=== PATIENT | male | born 1970 | race Hispanic/Latino ===

== ENCOUNTER 2020-03-04 17:18 | Emergency (ER) | payer BC ==
[~2020-03-04] VITALS: Ht 165.1 cm; Wt 69.7 kg
[2020-03-04] MEDS ORDERED: IOPAMIDOL 370 MG/ML 200 ML INFUS..BTL INJ ONE (18:58)
[2020-03-04] MEDS ORDERED: SODIUM CHLORIDE 0.9% 50ML 50 ML ONE (18:58)
[2020-03-04] MEDS ORDERED: AZITHROMYCIN 500MG/NS 250 ML 250 ML IV ONE ×2 (20:00→20:15)
[2020-03-04] MEDS ORDERED: ACETAMINOPHEN 325 MG TAB ONE (20:10)
[2020-03-04] MEDS ORDERED: AZITHROMYCIN 500MG/NS 250 ML 250 ML ONE (20:11)
[2020-03-04] MEDS ORDERED: ACETAMINOPHEN 325 MG TAB PO STA (20:27)
[2020-03-04 20:48] LABS: CREATINE KINASE MB 0.5 ng/mL (0-5.0)
== END 2020-03-04 21:40 | disposition short-term general hospital (02) ==
LOC: FSED 17:35
DX: J18.9 Pneumonia, unspecified organism (principal); R09.02 Hypoxemia; R94.31 Abnormal electrocardiogram [ECG] [EKG]; Z20.828 Contact with and (suspected) exposure to other viral communicable diseases
CPT/HCPCS: 36415; 71046; 71260; 80053; 82550; 82553; 83880; 84484; 85025; 85379; 93005; 99284; J0456; Q9967; U0002